=== PATIENT | male | born 1995 ===

== ENCOUNTER 2019-12-29 13:38 | Emergency (ER) | payer OTHER ==
[2019-12-29 15:17] VITALS: BP 102/60
--- NOTE | 2019-12-29 16:38 | UC ---
Skin Complaint HPI - HPI Summary HPI Summary: 24-year-old male comes in with a chief complaint of bilateral axilla rash. Started in the last couple of days. He stopped using deodorant that he been using. It's bilateral and initially it itches. Did try an [id number] cream which did not help. The rash does feel painful. No fevers or chills. No drainage. Feels well otherwise. - History of Current Complaint Chief Complaint: UCRash Time Seen by Provider: 12/29/19 16:26 Stated Complaint: RASH Pain Intensity: 0 - Allergy/Home Medications Allergies/Adverse Reactions: Allergies Allergy/AdvReac Type Severity Reaction Status Date / Time No Known Allergies Allergy Verified 12/29/19 15:18 Home Medications: Home Medications Cephalexin CAP* [Keflex CAP*] 500 mg PO TID #30 cap 12/29/19 [Rx] predniSONE 20 mg TAB [Deltasone 20 MG TAB*] 40 mg PO DAILY #12 tab 12/29/19 [Rx] PMH/Surg Hx/FS Hx/Imm Hx Previously Healthy: Yes - Surgical History Surgical History: Yes Surgery Procedure, Year, and Place: Vasectomy-2020 - Family History Known Family History: Positive: Non-Contributory - Social History Alcohol Use: Rare Substance Use Type: None Smoking Status (MU): Never Smoked Tobacco Review of Systems All Other Systems Reviewed And Are Negative: Yes Constitutional: Positive: Negative Skin: Positive: Rash - SEE HPI Eyes: Positive: Negative ENT: Positive: Negative Respiratory: Positive: Negative Cardiovascular: Positive: Negative Gastrointestinal: Positive: Negative Motor: Positive: Negative Neurovascular: Positive: Negative Musculoskeletal: Positive: Negative Neurological/Mental Status: Positive: Negative Psychological: Positive: Negative Is Patient Immunocompromised?: No Physical Exam Triage Information Reviewed: Yes Appearance: Well-Appearing, No Pain Distress, Well-Nourished Vital Signs: Initial Vital Signs Temp 97.9 F 12/29/19 15:13 Pulse 50 12/29/19 15:13 Resp 14 12/29/19 15:13 BP 102/60 12/29/19 15:13 Pulse Ox 100 12/29/19 15:13 Vital Signs Reviewed: Yes Eye Exam: Normal Eyes: Positive: Conjunctiva Clear Neck: Positive: Supple Respiratory: Positive: No respiratory distress Musculoskeletal: Positive: Strength Intact, ROM Intact Neurological: Positive: Alert Psychological: Positive: Age Appropriate Behavior Skin: Positive: Other - In both axilla there is a flat erythematous rash that does farhad and is tender to palpation. No drainage. Course/Dx - Course Course Of Treatment: Rash is most likely secondary to the deodorant he was using. Started with itching. We will treat with prednisone for allergic reaction. It is mildly tender to palpation going to treat with Keflex at the same time to ensure coverage for any possible bacterial infection although that is unlikely at this time. Patient is to follow-up with dermatology if not completely improved reevaluated sooner if worse or any questions or concerns. - Diagnoses Provider Diagnosis: Rash Discharge ED - Sign-Out/Discharge Documenting (check all that apply): Patient Departure All imaging exams completed and their final reports reviewed: No Studies - Discharge Plan Condition: Stable Disposition: HOME Prescriptions: Cephalexin CAP* [Keflex CAP*] 500 mg PO TID #30 cap predniSONE 20 mg TAB [Deltasone 20 MG TAB*] 40 mg PO DAILY #12 tab Patient Education Materials: Acute Rash (ED) Referrals: [facility] [Outside] Lori Rosado [Medical Doctor] - Tameka Ball MD [Medical Doctor] - Henok Jones MD [Medical Doctor] - Additional Instructions: FOLLOW UP WITH DERMATOLOGY IF NOT COMPLETELY IMPROVED. Do not use any deodorant until the rash is completely resolved. At that time you can start a deodorant but do not use the same deodorant that cause the problem began with. GET REEVALUATED SOONER IF NOT IMPROVED OR WORSE OR ANY QUESTIONS OR CONCERNS. - Billing Disposition and Condition Condition: STABLE Disposition: Home
== END 2019-12-29 16:48 | disposition home or self-care (01) ==
LOC: UCCORT 13:38
DX: R21 Rash and other nonspecific skin eruption (principal)
CPT/HCPCS: 99212; G0463